=== PATIENT | male | born 1965 | race Caucasian/White ===

== ENCOUNTER 2019-04-04 12:39 | Inpatient (IN) | payer MEDICAID ==
[~2019-04-04] VITALS: Ht 165.1 cm; Wt 73.0 kg
[~2019-04-04 12:39] MED LIST: GLIP10TA10 PO; METF-416 MT
[2019-04-04 16:13] LABS: CHLORIDE 103 mEq/L (98-107)
[2019-04-04 16:16] LABS: BASOPHILS % 0.4 % (0.0-2.0); EOSINOPHILS % 1.4 % (0.0-5.0); HEMATOCRIT. 38.1 % (42.0-52.0); HEMOGLOBIN. 13.3 g/dL (14.0-18.0); LYMPHOCYTES % 32.1 % (20.0-50.0); MEAN CORPUSCULAR HEMOGLOBIN 31.6 pg (28.0-32.0); MEAN CORPUSCULAR VOLUME 90.5 fL (80.0-94.0); MEAN PLATELET VOLUME 6.5 fl (7.4-10.4); MONOCYTES % 6.5 % (2.0-8.0); NEUTROPHILS % 59.6 % (40.0-76.0); PLATELET 264 x1000/uL (130-400); RED BLOOD CELL COUNT 4.21 mill/uL (4.7-6.1)
[2019-04-04] MEDS ORDERED: ASPIRIN 81MG TABLET PO ONE (17:15)
[2019-04-04] MEDS ORDERED: NITROGLYCERIN 0.4MG TABLET SL SL PRN (17:15)
[2019-04-04] MEDS ORDERED: ENOXAPARIN 80MG/0.8ML SYR SUBCUT ONE (18:45)
[2019-04-04] MEDS ORDERED: ACETAMINOPHEN 325MG TABLET PO PRN (19:00)
[2019-04-04] MEDS ORDERED: LORAZEPAM 2MG/ML CPJ IV PRN (19:00)
[2019-04-04] MEDS ORDERED: IPRATROPIUM/ALBUTEROL 0.5-3(2.5)MG/3ML NEB NEB PRN (19:00)
[2019-04-04] MEDS ORDERED: NA PHOS,M-B/NA PHOS,DI-BA ENEMA 118ML PR PRN (19:00)
[2019-04-04] MEDS ORDERED: DIPHENHYDRAMINE 50MG/ML VIAL IV PRN (19:00)
[2019-04-04] MEDS ORDERED: CLONIDINE 0.1MG TABLET PO PRN (19:00)
[2019-04-04] MEDS ORDERED: ONDANSETRON HCL 4MG/2ML INJ IV PRN (19:00)
[2019-04-04] MEDS ORDERED: DOCUSATE SODIUM 100MG CAPSULE PO PRN (19:00)
[2019-04-04] MEDS ORDERED: GUAIFENESIN 200MG/10ML SUGAR FREE UDC PO PRN (19:00)
[2019-04-04] MEDS ORDERED: MORPHINE SULFATE 2 MG/ML CPJ (NOT FOR IM USE) IV PRN (19:00)
[2019-04-04] MEDS ORDERED: MAGNESIUM/ALUMINUM HYDROXIDE/SIMETHICONE 30ML UDC PO PRN (19:00)
[2019-04-04] MEDS ORDERED: HYDROCODONE/ACETAMINOPHEN 5/325MG TABLET PO PRN (19:00)
[2019-04-05 04:51] LABS: BASOPHILS % 0.9 % (0.0-2.0); EOSINOPHILS % 3.1 % (0.0-5.0); HEMATOCRIT. 36.9 % (42.0-52.0); HEMOGLOBIN. 12.8 g/dL (14.0-18.0); LYMPHOCYTES % 55.3 % (20.0-50.0); MEAN CORPUSCULAR HEMOGLOBIN 31.3 pg (28.0-32.0); MEAN CORPUSCULAR VOLUME 90.3 fL (80.0-94.0); MEAN PLATELET VOLUME 6.3 fl (7.4-10.4); MONOCYTES % 9.7 % (2.0-8.0); PLATELET 241 x1000/uL (130-400); RED BLOOD CELL COUNT 4.08 mill/uL (4.7-6.1); RED CELL DISTRIBUTION WIDTH 13.2 % (11.6-14.6)
[2019-04-05 05:19] LABS: CHLORIDE 106 mEq/L (98-107)
[2019-04-05 05:28] LABS: LDL CHOLESTEROL 108 mg/dL (5-100)
[2019-04-05 05:29] LABS: HDL CHOLESTEROL 44 mg/dL (40-59); T4 FREE 1.32 ng/dL (0.76-1.46)
[2019-04-05 08:30] VITALS: BP 120/76
[2019-04-05] MEDS: ASPIRIN 81MG EC TABLET PO SCH (09:57)
[2019-04-05] MEDS ORDERED: APIX5TAB PO (10:40)
[2019-04-05] MEDS ORDERED: LISI-604 MT (10:40)
[2019-04-05] MEDS ORDERED: METO-539 PO (10:40)
[2019-04-05] MEDS ORDERED: HYDR12.54 MT (10:40)
[2019-04-05] MEDS ORDERED: AMIO100T4 MT (10:40)
[2019-04-05] MEDS ORDERED: METF-416 MT (10:40)
[2019-04-05] MEDS: METOPROLOL TARTRATE 50MG TABLET PO SCH ×2 (11:34→19:57)
[2019-04-05 12:00] VITALS: BP 125/80
[2019-04-05] MEDS: HYDROCHLOROTHIAZIDE 12.5MG CAPSULE PO SCH (12:35)
[2019-04-05] MEDS: APIXABAN 5 MG TABLET PO SCH ×2 (12:35→18:00)
[2019-04-05] MEDS: AMIODARONE HCL 200 MG TABLET PO SCH (12:35)
[2019-04-05] MEDS: LISINOPRIL 20MG TABLET PO SCH (12:37)
[2019-04-05] MEDS ORDERED: REGADENOSON 0.4 MG/5 ML IV SCH (15:15)
[2019-04-05 16:00] VITALS: BP 133/72
[2019-04-05 16:55] LABS: CREATINE KINASE 48 IU/L (39-308)
[2019-04-05] MEDS: METFORMIN HCL 500MG TABLET PO SCH (17:59)
[2019-04-05] MEDS ORDERED: ENOXAPARIN 40MG/0.4ML SYR SUBCUT SCH (19:00)
[2019-04-05] MEDS ORDERED: DEXTROSE 50% WATER 50ML SYRINGE IV PRN (19:30)
[2019-04-05 20:00] VITALS: BP 101/74
[2019-04-05] MEDS: INSULIN LISPRO 100 UNITS/ML SUBCUT SCH (20:02)
[2019-04-05] MEDS: BLOOD SUGAR DIAGNOSTIC STRIP TEST SCH (20:02)
[2019-04-06 00:17] VITALS: BP 110/69
[2019-04-06 00:46] LABS: CREATINE KINASE 46 IU/L (39-308)
[2019-04-06] MEDS: BLOOD SUGAR DIAGNOSTIC STRIP TEST SCH ×2 (06:33→12:40)
[2019-04-06 07:59] LABS: CREATINE KINASE 43 IU/L (39-308)
[2019-04-06 08:01] LABS: CREATINE KINASE MB FRACTION < 1.0 ng/mL (0.5-3.6)
[2019-04-06] MEDS: INSULIN LISPRO 100 UNITS/ML SUBCUT SCH ×2 (08:10→13:10)
[2019-04-06] MEDS: METOPROLOL TARTRATE 50MG TABLET PO SCH (09:00)
[2019-04-06] MEDS ORDERED: METOPROLOL TARTRATE 50MG TABLET PO SCH (09:00)
[2019-04-06] MEDS ORDERED: APIXABAN 5 MG TABLET PO SCH (09:00)
[2019-04-06] MEDS ORDERED: INFLUENZA VIRUS VACCINE(AFLURIA) 0.5ML SYR IM ONE (10:00)
[2019-04-06] MEDS: METFORMIN HCL 500MG TABLET PO SCH (13:43)
[2019-04-06] MEDS: APIXABAN 5 MG TABLET PO SCH (13:43)
[2019-04-06] MEDS: ASPIRIN 81MG EC TABLET PO SCH (13:43)
[2019-04-06] MEDS: AMIODARONE HCL 200 MG TABLET PO SCH (13:43)
[2019-04-06] MEDS: HYDROCHLOROTHIAZIDE 12.5MG CAPSULE PO SCH (13:43)
[2019-04-06] MEDS: LISINOPRIL 20MG TABLET PO SCH (13:44)
[2019-04-06 14:26] VITALS: BP 111/72
== END 2019-04-06 14:57 | disposition home or self-care (01) | DRG 203 ==
LOC: ER 14:33 → 7WST 17:52 → EDBEDREQTM 17:55 → EDBEDREQ 17:55 → ENRESERV 04-05 07:50
PROVIDERS: ADMIT Internal Medicine; ATTEND Internal Medicine
DX: M94.0 Chondrocostal junction syndrome [Tietze] (principal); I48.91 Unspecified atrial fibrillation; E11.9 Type 2 diabetes mellitus without complications; I25.10 Atherosclerotic heart disease of native coronary artery without angina pectoris; I10 Essential (primary) hypertension; Z79.01 Long term (current) use of anticoagulants
CPT/HCPCS: 36415; 71045; 78452; 80053; 80061; 82550; 82553; 82962; 83036; 83880; 84439; 84443; 84484; 85025; 85379; 90686; 93005; 93017; 93306; 99285; A9500; J1650

== ENCOUNTER 2019-11-13 08:17 | Day surgery (SDC) | payer MEDICAID ==
[~2019-11-13 08:17] MED LIST changes: +AMIO100T4 MT; +APIX5TAB PO; +HYDR12.54 MT; +LISI-604 MT; +METO-539 PO
[2019-11-13 09:15] LABS: HEMATOCRIT 40.5 % (42.0-52.0); MEAN CORPUSCULAR HEMOGLOBIN 32.1 pg (28.0-32.0); MEAN CORPUSCULAR VOLUME 92.9 fL (80.0-94.0); PLATELET 230 x1000/uL (130-400); RED BLOOD CELL COUNT 4.36 mill/uL (4.7-6.1); RED CELL DISTRIBUTION WIDTH 13.7 % (11.6-14.6)
[2019-11-13 09:22] LABS: CHLORIDE 104 mEq/L (98-107)
[2019-11-13] MEDS ORDERED: MIDAZOLAM HCL 2 MG/2 ML VIAL ONE ×3 (12:35→13:42)
[2019-11-13] MEDS ORDERED: FENTANYL CITRATE/PF 50MCG/ML 2ML VIAL ONE (12:35)
[2019-11-13] MEDS ORDERED: ATROPINE SULFATE 0.1MG/ML 10ML DISP.SYRIN ONE (12:36)
[2019-11-13 13:07] LABS: INR 1.1; PROTHROMBIN TIME 11.5 sec (9.6-11.0)
[2019-11-13] MEDS ORDERED: ATROPINE SULFATE 1MG/10ML SYR IV PRN (14:15)
[2019-11-13] MEDS ORDERED: ACETAMINOPHEN 325MG TABLET PO PRN (14:15)
== END 2019-11-13 16:30 | disposition home or self-care (01) ==
LOC: CARD 08:17
PROVIDERS: ATTEND Specialist
DX: I48.91 Unspecified atrial fibrillation (principal); I12.9 Hypertensive chronic kidney disease with stage 1 through stage 4 chronic kidney disease, or unspecified chronic kidney disease; E11.22 Type 2 diabetes mellitus with diabetic chronic kidney disease; N18.9 Chronic kidney disease, unspecified; Z79.82 Long term (current) use of aspirin; Z79.84 Long term (current) use of oral hypoglycemic drugs; Z79.899 Other long term (current) drug therapy; Z98.890 Other specified postprocedural states; Z72.89 Other problems related to lifestyle
CPT/HCPCS: 36415; 80053; 85027; 85610; 92960; J2250; J3010; 92961; J0461

== ENCOUNTER 2020-12-11 06:41 | Emergency (ER) | payer MEDICAID ==
[~2020-12-11] VITALS: Ht 165.1 cm; Wt 79.1 kg
[~2020-12-11 06:41] MED LIST changes: -GLIP10TA10 PO; -LISI-604 MT; +LISI20TA31 MT
[2020-12-11] MEDS ORDERED: MORPHINE SULFATE 4 MG/ML CPJ (NOT FOR IM USE) IV STA (07:13)
[2020-12-11] MEDS ORDERED: FAMOTIDINE 20MG/2ML VIAL IV ONE (07:15)
[2020-12-11] MEDS ORDERED: SODIUM CHLORIDE 0.9% 1,000 ML IV ONE (07:15)
[2020-12-11 07:51] LABS: BASOPHILS % 0.7 % (0.0-2.0); EOSINOPHILS % 2.2 % (0.0-5.0); HEMATOCRIT. 39.7 % (42.0-52.0); HEMOGLOBIN. 13.7 g/dL (14.0-18.0); LYMPHOCYTES % 47.7 % (20.0-50.0); MEAN CORPUSCULAR HEMOGLOBIN 31.5 pg (28.0-32.0); MEAN CORPUSCULAR VOLUME 91.2 fL (80.0-94.0); MEAN PLATELET VOLUME 6.8 fl (7.4-10.4); MONOCYTES % 9.8 % (2.0-8.0); NEUTROPHILS % 39.6 % (40.0-76.0); PLATELET 275 x1000/uL (130-400); RED BLOOD CELL COUNT 4.35 mill/uL (4.7-6.1); RED CELL DISTRIBUTION WIDTH 13.5 % (11.6-14.6)
[2020-12-11 07:58] LABS: PROTHROMBIN TIME 10.8 sec (9.6-11.0)
[2020-12-11 08:00] LABS: CHLORIDE 104 mEq/L (98-107)
[2020-12-11 09:46] LABS: CLARITY URINE CLEAR (CLEAR); COLOR URINE YELLOW (YELLOW); KETONES URINE NEGATIVE (NEGATIVE); LEUKOCYTE ESTERASE URINE NEGATIVE (NEGATIVE); NITRITE URINE NEGATIVE (NEGATIVE); OCCULT BLOOD URINE NEGATIVE (NEGATIVE); PROTEIN URINE 1+ (NEGATIVE); SPECIFIC GRAVITY URINE 1.018 (1.005-1.030); UROBILINOGEN URINE 0.2 E.U./dL (0.2-1.0)
[2020-12-11 11:15] VITALS: BP 115/70
[2020-12-11] MEDS ORDERED: FAMO-135 MT (11:16)
== END 2020-12-11 11:40 | disposition home or self-care (01) ==
LOC: ER 06:41
DX: R10.11 Right upper quadrant pain (principal); K76.0 Fatty (change of) liver, not elsewhere classified; E11.9 Type 2 diabetes mellitus without complications; I10 Essential (primary) hypertension; I49.9 Cardiac arrhythmia, unspecified; Z90.49 Acquired absence of other specified parts of digestive tract; Z79.899 Other long term (current) drug therapy
CPT/HCPCS: 36415; 71045; 76705; 80053; 81003; 83690; 85025; 85610; 96374; 96375; 99285; J2270; J3490; J7030